=== PATIENT | male | born 1985 | race Caucasian/White ===

== ENCOUNTER 2022-10-11 16:26 | Emergency (ER) | payer SELFPAY ==
[~2022-10-11] VITALS: Ht 167.6 cm; Wt 59.4 kg
[2022-10-11] MEDS ORDERED: MORPHINE SULFATE INJ 2 MG/ML DISP.SYRIN IV ONE (17:30)
[2022-10-11] MEDS ORDERED: IV NS 0.9% 1,000 ML BAG IV ONE (17:30)
[2022-10-11] MEDS ORDERED: MORPHINE SULFATE INJ 4 MG/ML DISP.SYRIN ONE (17:44)
[2022-10-11 17:46] LABS: BASOPHILS % (AUTO) 0.7 % (0.0-2.0); EOSINOPHILS % (AUTO) 1.3 % (0.0-6.0); HEMATOCRIT 39 % (39-51); HEMOGLOBIN 12.7 g/dL (13.5-17.5); LYMPHOCYTES # (AUTO) 1.4 K/uL (0.8-4.8); LYMPHOCYTES % (AUTO) 25.9 % (20.0-44.0); MEAN CORPUSCULAR HGB CONC 32 g/dl (31.0-36.0); MEAN CORPUSCULAR VOLUME 96 fL (80-96); MONOCYTES # (AUTO) 0.5 K/uL (0.1-1.30); MONOCYTES % (AUTO) 8.8 % (2.0-12.0); NEUTROPHILS # (AUTO) 3.4 K/uL (1.8-8.9); NEUTROPHILS % (AUTO) 63.3 % (43.0-81.0); PLATELET COUNT (AUTO) 369 K/uL (150-450); RED BLOOD CELL COUNT(AUTO) 4.12 MIL/uL (4.5-6.0); WHITE BLOOD COUNT (AUTO) 5.3 K/uL (4.3-11.0)
[2022-10-11 17:56] LABS: CALCIUM, SERUM 9.1 mg/dL (8.5-10.1); CREATININE 1.1 mg/dL (0.6-1.3); POTASSIUM 3.6 mmol/L (3.5-5.1)
--- NOTE | 2022-10-11 18:00 | NUR ---
PT COMES TO ER FOR AB PAIN. Hx OF HERNIA SAYS IT COMES OUT AND IS CAUSING HIME IMENSE PAIN. WEAR ABDOMINAL BINDER TO TRY AND KEEP THE HERNIA IN BUT STILL COMES OUT WHEN HE BEARS DOWN.
[2022-10-11 18:02] LABS: ALBUMIN 3.8 g/dL (3.4-5.0); BILIRUBIN,DIRECT 0.2 mg/dL (0.0-0.2); TOTAL PROTEIN, SERUM 7.1 g/dL (6.4-8.2)
--- NOTE | 2022-10-11 18:25 | NUR ---
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
[2022-10-11] MEDS ORDERED: IV NS 0.9% 250 ML IV ONE (19:22)
[2022-10-11] MEDS ORDERED: IOHEXOL-300 100 ML VIAL IV ONE (19:22)
--- NOTE | 2022-10-11 19:30 | NUR ---
PT TAKEN TO CT JESSICA BETH
[2022-10-11 21:27] LABS: BILIRUBIN,URINE NEGATIVE (NEGATIVE); COLOR,URINE YELLOW (YELLOW); LEUKOCYTE ESTERASE ,URINE NEGATIVE (NEGATIVE); NITRITE, URINE NEGATIVE (NEGATIVE); PROTEIN,URINE NEGATIVE (NEGATIVE); UGLUCOSE NEGATIVE (NEGATIVE); UROBILINOGEN,URINE 0.2 EU/dL (0.2)
[2022-10-11 23:19] VITALS: BP 126/64; TEMP 98.4
== END 2022-10-11 23:19 | disposition home or self-care (01) ==
LOC: ER 16:30
DX: K55.1 Chronic vascular disorders of intestine (principal); N43.3 Hydrocele, unspecified; R59.1 Generalized enlarged lymph nodes; R10.31 Right lower quadrant pain; Z60.2 Problems related to living alone
CPT/HCPCS: 99285; 74177; 96374; 96361; 76870; 85025; 80048; 83690; 80076; 81003; 36415; J2270; J7030; J7050; Q9967

== ENCOUNTER 2023-01-04 19:32 | Emergency (ER) | payer OTHER ==
[~2023-01-04] VITALS: Ht 175.3 cm; Wt 54.4 kg
[2023-01-04 20:25] VITALS: TEMP 98
[2023-01-04 21:55] LABS: BASOPHILS # (AUTO) 0.1 K/uL (0.0-0.2); BASOPHILS % (AUTO) 0.7 % (0.0-2.0); EOSINOPHILS # (AUTO) 0.2 K/uL (0.0-0.7); EOSINOPHILS % (AUTO) 2.2 % (0.0-6.0); HEMATOCRIT 38 % (39-51); HEMOGLOBIN 12.4 g/dL (13.5-17.5); LYMPHOCYTES # (AUTO) 2.6 K/uL (0.8-4.8); LYMPHOCYTES % (AUTO) 38.3 % (20.0-44.0); MEAN CORPUSCULAR HEMOGLOBIN 32 PG (26.0-33.0); MEAN CORPUSCULAR HGB CONC 33 g/dl (31.0-36.0); MEAN CORPUSCULAR VOLUME 96 fL (80-96); MONOCYTES # (AUTO) 0.8 K/uL (0.1-1.30); MONOCYTES % (AUTO) 11.6 % (2.0-12.0); NEUTROPHILS # (AUTO) 3.2 K/uL (1.8-8.9); NEUTROPHILS % (AUTO) 47.2 % (43.0-81.0); PLATELET COUNT (AUTO) 394 K/uL (150-450); RED CELL DISTRIBUTION WIDTH 12.7 % (11.5-15.0); WHITE BLOOD COUNT (AUTO) 6.9 K/uL (4.3-11.0)
[2023-01-04 22:00] LABS: CALCIUM, SERUM 9.4 mg/dL (8.5-10.1); CREATININE 1.1 mg/dL (0.6-1.3); POTASSIUM 3.3 mmol/L (3.5-5.1)
[2023-01-04] MEDS ORDERED: IOHEXOL-350 100 ML VIAL IV ONE (22:02)
[2023-01-04] MEDS ORDERED: IV NS 0.9% 250 ML IV ONE (22:02)
[2023-01-04 22:06] LABS: ALBUMIN 3.6 g/dL (3.4-5.0); BILIRUBIN,DIRECT 0.2 mg/dL (0.0-0.2); BILIRUBIN,TOTAL 1.1 mg/dL (0.2-1.0); TOTAL PROTEIN, SERUM 6.8 g/dL (6.4-8.2)
[2023-01-04] MEDS ORDERED: IV NS 0.9% 1,000 ML BAG IV ONE (22:30)
[2023-01-04] MEDS ORDERED: AMOX-430 PO (23:05)
[2023-01-04] MEDS ORDERED: NAPR-1164 PO (23:05)
[2023-01-04 23:36] VITALS: BP 120/67; O2SAT 97
[2023-01-04 23:50] LABS: APPEARANCE,URINE CLEAR (CLEAR); BILIRUBIN,URINE NEGATIVE (NEGATIVE); BLOOD, URINE NEGATIVE Ery/uL (NEGATIVE); COLOR,URINE YELLOW (YELLOW); KETONES,URINE TRACE mg/dL (NEGATIVE); LEUKOCYTE ESTERASE ,URINE NEGATIVE (NEGATIVE); NITRITE, URINE NEGATIVE (NEGATIVE); PROTEIN,URINE NEGATIVE (NEGATIVE); UGLUCOSE NEGATIVE (NEGATIVE); UROBILINOGEN,URINE 0.2 EU/dL (0.2)
== END 2023-01-05 00:19 | disposition home or self-care (01) ==
LOC: ER 19:35 → EDBD 19:35 → ER 01-05 00:19
DX: R10.30 Lower abdominal pain, unspecified (principal); Z79.899 Other long term (current) drug therapy; Z60.2 Problems related to living alone
CPT/HCPCS: 99285; 74174; 96360; 85025; 80048; 83690; 80076; 81003; 36415; J7030; J7050; Q9967